=== PATIENT | male | born 1970 | race Caucasian/White ===

== ENCOUNTER 2019-01-29 13:25 | Observation (INO) | payer OTHER, SELFPAY ==
[~2019-01-29 13:25] MED LIST: ISOVUE-370 76%-LOCM 1 ML ONE
[2019-01-29 13:54] LABS: Hemoglobin 17.5 g/dL (14.0-18.0); Mean Corpuscular HGB CONC 34.1 g/dL (32.0-36.0); Mean Corpuscular Hemoglobin 31.7 pg (27.0-31.0); Mean Corpuscular Volume 93.1 fL (78.0-98.0); Mean Platelet Volume 7.1 fL (7.4-10.4); Platelet Count 285 thou/uL (130-400); RBC Distribution Width 12.1 % (11.5-14.5); Red Blood Cell (RBC) Count 5.53 mill/uL (4.70-6.10); White Blood Cell (WBC) Count 16.9 thou/uL (4.8-10.8)
[2019-01-29 13:57] LABS: INR-International Normal Ratio 0.9; Prothrombin Time 12.6 SEC (12.0-14.7)
[2019-01-29 13:58] LABS: PTT 30.7 SEC (22.9-36.1)
[2019-01-29 14:06] LABS: ALT (SGPT) 10 U/L (8-55); AST (SGOT) 13 U/L (5-34); Acetaminophen Less than 6.0 mcg/mL (10.0-30.0); Albumin 4.3 g/dL (3.5-5.0); Alcohol Less than 10 mg/dL (Less than 10); Alkaline Phosphatase 65 U/L (40-150); Anion Gap 16 mmol/L (10-20); BUN (Urea Nitrogen) 6 mg/dL (8.9-20.6); Bilirubin, Total 0.5 mg/dL (0.2-1.2); CK (CPK) 47 U/L (30-200); Calc. Creatinine Clearance 0 mL/min (70-130); Calcium 9.7 mg/dL (7.8-10.44); Carbon Dioxide 23 mmol/L (22-29); Chloride 102 mmol/L (98-107); Estimated GFR-MDRD Greater than 90; Glucose 91 mg/dL (70-105); Potassium 4.1 mmol/L (3.5-5.1); Protein, Total 7.3 g/dL (6.0-8.3); Salicylate Less than 8.0 mg/dL (15.0-30.0); Sodium 137 mmol/L (136-145)
[2019-01-29 14:14] LABS: Lymphocytes 42 % (21-51); MDiff Complete? YES; Monocytes 7 % (0-10); Neutrophil 51 % (42-75); Platelet Morphology Comment Appears Adequate
[2019-01-29] MEDS ORDERED: Bisacodyl 5 MG TAB PO PRN (15:07)
[2019-01-29] MEDS ORDERED: Diabetic Tussin 200 MG/10 ML UDCUP PO PRN (15:07)
[2019-01-29] MEDS ORDERED: Acetaminophen 325 MG TAB PO PRN (15:07)
[2019-01-29] MEDS ORDERED: hydrALAZINE 20 MG/ML VIAL SLOW IVP PRN (15:07)
[2019-01-29] MEDS ORDERED: Bisacodyl 10 MG SUPP PR PRN (15:07)
[2019-01-29] MEDS ORDERED: Senokot S 8.6-50 MG TAB PO PRN (15:07)
[2019-01-29] MEDS ORDERED: Ondansetron PF 4 MG/2 ML Vial IVP PRN (15:07)
[2019-01-29] MEDS ORDERED: Benzonatate 100 MG CAP PO PRN (15:07)
--- NOTE | 2019-01-29 15:15 | CT ---
CT HEAD NONCONTRAST: Date: 01/29/19 HISTORY: Left-sided weakness. FINDINGS: There is no evidence of acute intracranial hemorrhage or infarct. Ventricles appear normal in size, s hape, and position. There is no mass effect or shift of midline structures. Visualized paranasal sinu ses remain well aerated. IMPRESSION: No acute intracranial abnormalities are demonstrated. Findings called to Dr. De in the emergency department at 1338 hours. CODE CR. POS: [facility]
--- NOTE | 2019-01-29 15:32 | RAD ---
PORTABLE AP CHEST: Date: 01/29/19 HISTORY: Altered mental status, left-sided weakness. FINDINGS: The cardiac silhouette and pulmonary vasculature are within normal limits. Lungs are clear. There is question of scalloping in the region of the left glenoid, this may be projectional. Osseous structure s otherwise have a normal appearance. IMPRESSION: No acute cardiopulmonary process. POS: [facility]
--- NOTE | 2019-01-29 15:38 | CT ---
CT ARTERIOGRAM HEAD WITH IV CONTRAST AND 3D MIP IMAGING: CT BRAIN WITH IV CONTRAST: CT THORACIC SPINE WITHOUT CONTRAST: HISTORY: Altered mental status. Left-sided weakness. FINDINGS: Normal branching of the great vessels at the aortic arch with no significant calcification. Good clarita w interval each carotid and vertebral system. At each carotid bifurcation, there is mild calcified and noncalcified plaque. No significant stenosi s. The [place] is intact. Mild intracranial carotid arterial calcifications. Good flow into e ach cerebral and cerebellar cistern. No abnormal areas of contrast enhancement. Reversal of the nor mal lordotic curvature of the cervical spine with scattered osteophytosis. Significant central canal stenosis is apparent at the C4-C5 and C5-C6 levels, where there is also minimal degenerative retroli sthesis. IMPRESSION: 1. Atherosclerosis without significant carotid stenosis. No arterial occlusion is apparent. 2. Degenerative changes, cervical spine, including significant central canal stenosis. POS: [facility]
[2019-01-29 15:44] LABS: Bilirubin Negative (Negative); Blood, Urine Negative (Negative); Clarity CLEAR (Clear); Glucose, Urine (Dipstick) Negative (Negative); Leukocyte Negative (Negative); Nitrite Negative (Negative); Protein, Urine (Dipstick) Negative (Neg-Trace); Specific Gravity, Urine 1.024 (1.002-1.036); Urobilinogen 0.2 mg/dL (0.2-1.0); pH, Urine 6.5 (5.0-9.0)
[2019-01-29 15:55] LABS: Medtox Reader # READER 4
[2019-01-29 15:56] LABS: Amphetamine Not Detected (NotDetected); Barbiturates Screen Not Detected (NotDetected); Benzodiazepine Screen Not Detected (NotDetected); Cocaine Metabolite Screen Not Detected (NotDetected); Medtox Control Line Valid? VALID (VALID); Methadone Not Detected (NotDetected); Methamphetamine Not Detected (NotDetected); Opiate Screen Not Detected (NotDetected); Oxycodone Screen Not Detected (NotDetected); Phencyclidine (PCP) Not Detected (NotDetected); THC/Cannabinoid Screen Not Detected (NotDetected); Tricyclic Screen Not Detected (NotDetected)
--- NOTE | 2019-01-29 16:44 | HP ---
PRIMARY CARE PHYSICIAN: None. CHIEF COMPLAINT: Left-sided facial weakness, tongue weakness, left arm and leg weakness, and left-sided facial droop. HISTORY OF PRESENTING ILLNESS: Mr. Aguilar is a 48-year-old male who has not been to any physician for multiple years, who smokes heavily, presented to the emergency room with above-mentioned complaint. His history was mainly obtained by the patient himself, and electronic medical records have been reviewed. Case has been discussed with admitting ER physician. Mr. Aguilar reports that yesterday he had a small episode of some sharp twinge in his chest, which later went away. However, this morning when he woke up, he was having difficult time moving his left side because it just felt very tingly. He had a feeling that somebody has injected lidocaine in his arms and legs. He also notices that his tongue has lost sensation, and his noticed that his left eye was droopy. They presented to the emergency room, and his symptoms were almost resolved by the time he presented here. He was hemodynamically stable upon presentation, and his initial workup was negative including a brain CT and a CT angio of the head and neck. He has been given aspirin in the ER and is now being admitted for further evaluation and care. He smokes heavily and has significant family history of stroke in his mother. His father of lung cancer. One of his aunts had a brain aneurysm. He also drinks heavily, but states that he can quit any time. His last drink was 3 weeks ago, but when he drinks, he drinks anywhere from 6- to 12-pack of beer per day. He otherwise denies any other recent illnesses. He has been told that he has high blood pressure, but he never took any medication or never got it checked. PAST MEDICAL HISTORY: Unknown. PAST SURGICAL HISTORY: None as per the patient. PSYCHIATRIC HISTORY: No anxiety. No depression. SOCIAL HISTORY: Drinking and smoking habits, as above. He has been drinking and smoking since his early 20s. Denies any drug abuse. ALLERGIES: NONE. CURRENT MEDICATIONS: None. FAMILY HISTORY: Significant for stroke in his mother. Lung cancer in his father. REVIEW OF SYSTEMS: A 12-point review of systems is done. It is negative except for those mentioned in the History and Physical LABORATORY EXAMINATION: Serum chemistry is unremarkable. Creatine kinase normal. Troponin normal. TSH normal. Blood sugar 87. CBC shows WBCs at 16.9. Urinalysis unremarkable. Drug screen, clean. CT of the brain by my review shows no evidence to suggest any hemorrhage or acute infarction. CT angio of the head and neck is negative for any stenosis or block. Atherosclerosis is seen. Chest x-ray is negative for any acute cardiopulmonary abnormality. PHYSICAL EXAMINATION: VITAL SIGNS: Blood pressure 158/86, respirations 18, saturating 100% on room air, temperature 98.4, and heart rate 88. GENERAL: No acute distress. Awake, alert, and oriented x3. Sitting up comfortably in bed. is at bedside. HEENT: Mucous membrane is slightly dry. No oropharyngeal exudate or erythema. Head is normocephalic, atraumatic. Pupils are equal and reactive to light and accommodation. Extraocular movements intact. NECK: Supple without any lymphadenopathy, JVD, or bruit. CHEST: Clear to auscultation without any wheezing, rales, or rhonchi. HEART: Rate and rhythm are regular. He has a 2/6 diastolic murmur heard easily at the second intercostal space. ABDOMEN: Soft, nontender, nondistended with positive bowel sounds. EXTREMITIES: They are free of any cyanosis, clubbing, or edema. NEUROLOGIC: Nonfocal. He does have some decreased sensation, which is mainly in the left arm and left leg. He also states that his tongue feels weird and numb. SKIN: Free of any rashes or bruises. Feels warm and dry to touch. PSYCHIATRIC: Normal affect. IMPRESSION AND PLAN: 1. Transient ischemic attack. The patient has multiple risk factors, and his symptoms are quite suggestive of a transient ischemic attack, if not cerebrovascular accident. He will be admitted under observation status overnight on stroke floor for further evaluation. We will get the MRI of the brain and echocardiogram. CT scan of the brain and CT angio of the head and neck are negative so far. We will also check lipid panel and start him on full dose aspirin and add statin. Extensive tobacco cessation counseling and alcohol counseling are done. He was encouraged to follow with primary care physician for blood pressure monitoring. We will use p.r.n. antihypertensives. 2. Tobacco abuse. Counseling is provided. We will add nicotine patch. 3. Alcohol abuse. Once again, the patient has been counseled. He states that he can quit any time, and his last drink was 3 weeks ago. 4. History of hypertension. Monitor and treat appropriately as needed. Currently on p.r.n. antihypertensives. DISPOSITION: Mr. Aguilar is currently being admitted to the hospital for symptoms suggestive of TIA, possible CVA. Currently, he is under observation status, but further management will depend upon his clinical course. Job ID: [id number]
[2019-01-29] MEDS ORDERED: Nicotine 21 MG PATCH TD SCH (17:00)
[2019-01-29] MEDS ORDERED: Rosuvastatin 20 MG TAB PO SCH (21:00)
[2019-01-29] MEDS: Famotidine 20 MG TAB PO SCH (22:15)
[2019-01-30 00:23] VITALS: BMI 23.8
[2019-01-30 05:51] LABS: Anion Gap 12 mmol/L (10-20); BUN (Urea Nitrogen) 10 mg/dL (8.9-20.6); Calc. Creatinine Clearance 100 mL/min (70-130); Calcium 8.9 mg/dL (7.8-10.44); Carbon Dioxide 24 mmol/L (22-29); Chloride 105 mmol/L (98-107); Estimated GFR-MDRD Greater than 90; Glucose 89 mg/dL (70-105); Potassium 4.3 mmol/L (3.5-5.1); Sodium 137 mmol/L (136-145)
[2019-01-30 05:53] LABS: Cardiac Risk 8.1 (Less than 4.5)
[2019-01-30 06:03] LABS: Hemoglobin 16.1 g/dL (14.0-18.0); Mean Corpuscular HGB CONC 33.7 g/dL (32.0-36.0); Mean Platelet Volume 7.8 fL (7.4-10.4); Platelet Count 254 thou/uL (130-400); RBC Distribution Width 12.3 % (11.5-14.5); Red Blood Cell (RBC) Count 5.19 mill/uL (4.70-6.10); White Blood Cell (WBC) Count 10.2 thou/uL (4.8-10.8)
[2019-01-30 06:04] LABS: Lymphocytes 33 % (21-51); MDiff Complete? YES; Monocytes 5 % (0-10); Neutrophil 62 % (42-75); Platelet Morphology Comment Appears Adequate; RBC Morphology Normal
[2019-01-30] MEDS ORDERED: Enoxaparin Sodium 40 MG/0.4 ML SYRINGE SC SCH (09:00)
[2019-01-30] MEDS ORDERED: Aspirin 325 mg Enteric Coated Tablet PO SCH (09:00)
[2019-01-30] MEDS ORDERED: Lorazepam 2 MG/ML VIAL SLOW IVP SCH (09:15)
[2019-01-30] MEDS: Famotidine 20 MG TAB PO SCH (09:58)
--- NOTE | 2019-01-30 11:40 | RAD ---
SKULL LESS THAN 4 VIEWS: HISTORY: MRI clearance. COMPARISON: None. FINDINGS: No radiopaque foreign object is seen projecting over the orbits. IMPRESSION: No radiopaque foreign object seen projecting over the orbits. POS: [facility]
--- NOTE | 2019-01-30 14:17 | MRI ---
MRI BRAIN: DATE: 01/30/2019. PROVIDED CLINICAL HISTORY: Left-sided weakness. FINDINGS: Comparison is made with the CT examination dated 01/29/2019. Evaluation is limited by patient motion. The ventricular system appears normal in size and morphology. There is no evidence for intracranial hemorrhage or mass. There is no shift of the midline structures. The basilar cisterns appear paten t. No evidence for restricted diffusion to suggest recent infarction. Appropriate flow voids are se en within the major intracranial vessels. The extracranial soft tissues and calvarial signal demonst rate a normal MR appearance. Scattered punctate areas of FLAIR and T2 hyperintensity are seen involv ing the cerebral white matter, statistically reflecting chronic microvascular ischemic change. IMPRESSION: No evidence for restricted diffusion to suggest recent infarction. POS: [facility]
[2019-01-30 15:28] VITALS: BP 121/75; TEMP 98.9
--- NOTE | 2019-01-31 02:54 | DIS ---
DATE OF ADMISSION: 01/29/2019 DATE OF DISCHARGE: 01/30/2019 DISCHARGE DIAGNOSES: 1. Transient ischemic attack, improved. 2. Tobacco abuse. 3. Hyperlipidemia. 4. Alcohol use. CONSULTATIONS: None. PERTINENT LAB AND X-RAY FINDINGS: Basic metabolic profile within normal limits. Troponin I negative x3. TSH 2.58. Total cholesterol 244, triglycerides 184, HDL 30, LDL 177. CBC showed a white blood cell count ranging between 10.2 to 16.9. Urinalysis negative. Urine drug screen negative, 01/29/2019. Plasma alcohol level less than 10. CT of the brain without contrast dated 01/29/2019, showed no acute intracranial process. CT angiogram of the head and neck dated , showed no hemodynamically significant stenosis. Portable chest x-ray dated 01/29/2019, showed no acute cardiopulmonary process. MRI of the brain dated 01/30/2019 showed no acute infarct with chronic small-vessel ischemic changes noted. HOSPITAL COURSE: The patient was observed on the Stroke Unit after initially presenting with left-sided facial weakness, left upper and lower extremity paresthesias, receiving aspirin 325 mg. The patient underwent general stroke protocol including CT and MRI modalities showing no acute infarct. The patient's symptoms improved after receiving aspirin and monitored on the Stroke Unit. The patient underwent general stroke protocol showing no focal stenosis of the carotid system. Telemetry monitoring showed sinus mechanism without evidence of acute arrhythmia or dysrhythmia. The patient was strongly counseled regarding the need for smoking cessation as well as risk factor modification to avoid future CVA. I have examined the patient at the time of discharge and discussed followup instructions. The patient verbalized understanding and in agreement, ready for discharge on 01/30/2019. DISCHARGE MEDICATIONS: 1. Enteric-coated aspirin 325 mg p.o. daily. 2. Simvastatin 40 mg p.o. at bedtime. 3. Nicotine patch 21 mg transdermally daily. FOLLOWUP: The patient may follow up with [place], [place] after discharge. CONDITION ON DISCHARGE: Stable. ACTIVITY: Ad-katherine. DIET: Heart healthy. CODE STATUS: Full. DISPOSITION: To home, 01/30/2019. Job ID: [id number]
--- NOTE | 2019-02-04 20:33 | EKG ---
Test Reason : WEAKNESS Blood Pressure : / mmHG Vent. Rate : 073 BPM Atrial Rate : 073 BPM P-R Int : 162 ms QRS Dur : 096 ms QT Int : 384 ms P-R-T Axes : 049 003 034 degrees QTc Int : 423 ms Normal sinus rhythm Incomplete right bundle branch block Septal infarct , age undetermined Abnormal ECG Confirmed by NAOMI ARMSTRONG, CHRIS ([id number]), assignment desk editor ELLE SALINAS ([id number]) on 02/04/2019 8:32:39 PM Referred By: Confirmed By:CHRIS SALGADO MD
== END 2019-01-30 16:04 | disposition home or self-care (01) ==
LOC: ERS 13:25 → ERHOLD 15:18 → 2SE 19:16
PROVIDERS: ADMIT Internal Medicine; ATTEND Internal Medicine
DX: G45.9 Transient cerebral ischemic attack, unspecified (principal); E78.5 Hyperlipidemia, unspecified; F17.210 Nicotine dependence, cigarettes, uncomplicated; F10.10 Alcohol abuse, uncomplicated; I10 Essential (primary) hypertension
CPT/HCPCS: 36415; 36416; 70250; 70450; 70496; 70498; 70551; 71045; 80048; 80053; 80061; 80306; 80307; 81003; 82550; 84443; 84484; 85025; 85610; 85730; 93005; 93306; 94760; 96372; 96374; G0378; J1650; J2060; Q9966

== ENCOUNTER 2025-06-23 01:22 | Emergency (ER) | payer OTHER ==
[2025-06-23 02:31] LABS: Hematocrit 32.3 % (42.0-52.0); Hemoglobin 10.8 g/dL (14.0-18.0); Mean Corpuscular Hemoglobin 30.0 pg (27.0-31.0); Mean Corpuscular Volume 89.7 fL (78.0-98.0); Platelet Count 408 10x3/uL (130-400); Red Blood Cell (RBC) Count 3.60 mill/uL (4.70-6.10); White Blood Cell (WBC) Count 7.30 10x3/uL (4.8-10.8)
[2025-06-23 02:51] LABS: ALT (SGPT) 17 U/L (Less than 45); AST (SGOT) 27 U/L (11-34); Albumin 3.7 g/dL (3.1-4.5); Alkaline Phosphatase 92 U/L (40-110); Anion Gap 13 mmol/L (10-20); BUN (Urea Nitrogen) 10 mg/dL (8.4-25.7); Bilirubin, Total 0.4 mg/dL (0.3-1.2); Calc. Creatinine Clearance 0 mL/min (70-130); Calcium 9.0 mg/dL (7.8-10.44); Carbon Dioxide 23 mmol/L (22-29); Chloride 102 mmol/L (98-107); Globulin 3.6 g/dL (2.4-3.5); Glucose 97 mg/dL (70-105); Potassium 4.2 mmol/L (3.5-5.1); Sodium 134 mmol/L (136-145)
[2025-06-23 03:12] LABS: Platelet Adequacy Comment Platelets Normal; RBC Morphology Within Normal Limits; Smudge Cells 13.0 %
== END 2025-06-23 06:13 | disposition home or self-care (01) ==
LOC: ERS 01:22
DX: S84.91XA Injury of unspecified nerve at lower leg level, right leg, initial encounter (principal); M54.30 Sciatica, unspecified side; I10 Essential (primary) hypertension; F17.210 Nicotine dependence, cigarettes, uncomplicated; X58.XXXA Exposure to other specified factors, initial encounter
CPT/HCPCS: 80053; 85025; 93005